=== PATIENT | male | born 1950 | race Two or more races ===

== ENCOUNTER 2017-09-21 09:13 | Emergency (ER) | payer MEDICARE, OTHER ==
[~2017-09-21] VITALS: Ht 170.2 cm; Wt 82.6 kg
[2017-09-21 09:29] VITALS: BP 136/82
[2017-09-21] MEDS ORDERED: KETOROLAC TROMETH 60MG/2ML VIAL IM ONE (10:00)
== END 2017-09-21 10:25 | disposition home or self-care (01) ==
LOC: ER 09:13
DX: S83.8X1A Sprain of other specified parts of right knee, initial encounter (principal); E11.9 Type 2 diabetes mellitus without complications; I10 Essential (primary) hypertension; X50.0XXA Overexertion from strenuous movement or load, initial encounter; Y93.89 Activity, other specified; Y99.8 Other external cause status; Y92.89 Other specified places as the place of occurrence of the external cause
CPT/HCPCS: 73562; 96372; 99284; J1885

== ENCOUNTER 2023-11-30 02:30 | Inpatient (IN) | payer MEDICARE, OTHER ==
[~2023-11-30] VITALS: Ht 170.2 cm; Wt 86.7 kg
[2023-11-30 03:59] LABS: Urine Bacteria None Seen /hpf (None Seen)
[2023-11-30 04:06] LABS: Urine Blood 3+ /uL (Negative); Urine Clarity Turbid (Clear); Urine Color Colorless (Yellow); Urine Protein, UAD 1+ (Negative); Urine Specific Gravity 1.027 (1.001-1.035); Urine Urobilinogen Normal (Negative); Urine WBC 188 /hpf (0 - 3); Urine pH 5.5 (5.0-9.0)
[2023-11-30 07:31] LABS: Basophils # (auto) 0 10 ^3/uL (0-0.2); Basophils % (auto) 0.7 % (0.0-2.0); Eosinophils # (auto) 0.3 10 ^3/uL (0-0.8); Eosinophils % (auto) 5.4 % (0.0-7.0); Hematocrit 40.7 % (41.0-53.0); Hemoglobin 13.7 g/dL (13.5-17.5); Lymphocytes # (auto) 1.6 10 ^3/uL (0.4-5.4); Lymphocytes % (auto) 24.5 % (10.0-50.0); Mean Corpuscular Hemoglobin 29.8 pg (28.0-32.0); Mean Corpuscular Hgb Conc. 33.7 g/dL (32.0-36.0); Mean Corpuscular Volume 88.5 fL (80.0-100.0); Monocytes # (auto) 0.9 10 ^3/uL (0-1.3); Monocytes % (auto) 14.9 % (0.0-12.0); Neutrophils # (auto) 3.5 10 ^3/uL (1.6-8.6); Neutrophils % (auto) 54.5 % (37.0-80.0); White Blood Cell 6.3 10^3/uL (4.4-10.8)
[2023-11-30 07:46] LABS: INR 0.98 (0.9-1.15); Partial Thromboplastin Time 27.4 SEC (24.5-34.5); Prothrombin Time 10.4 sec (9.3-11.8)
[2023-11-30 07:50] LABS: Alanine Aminotransferase 34 U/L (7-40); Albumin 4.2 g/dL (3.2-4.8); Alkaline Phosphatase 118 U/L (46-116); Anion Gap 5 (5-15); Aspartate Aminotransferase 16 U/L (13-40); BUN/Creatinine Ratio 20.8 (10.0-20.0); Blood Urea Nitrogen 20 mg/dL (9-23); Calcium 9.1 mg/dL (8.7-10.4); Carbon Dioxide 24 mmol/L (20-30); Chloride 108 mmol/L (98-107); Glucose 183 mg/dL (74-106); Lipase 73 U/L (12-53); Magnesium 2.1 mg/dL (1.6-2.6); Potassium 3.9 mmol/L (3.5-5.1); Sodium 137 mmol/L (136-145)
[2023-11-30 07:51] LABS: Total Protein 6.9 g/dL (5.7-8.2)
[2023-11-30 07:52] LABS: Bilirubin, Total 0.3 mg/dL (0.2-1.0)
[2023-11-30 08:30] VITALS: PULSE 53; RESP 22; O2SAT 91
[2023-11-30] MEDS: SODIUM CHLORIDE 0.9% 500 ML IVB ONE (08:30)
[2023-11-30] MEDS: SODIUM CHLORIDE 0.9% 1,000 ML IV ONE ×2 (09:24→15:29)
[2023-11-30] MEDS ORDERED: METO-159 PO (15:15)
[2023-11-30] MEDS ORDERED: CLON0.1T PO (15:15)
[2023-11-30] MEDS ORDERED: MET25T PO (15:15)
[2023-11-30] MEDS ORDERED: ATOR40TA52 PO (15:15)
[2023-11-30] MEDS ORDERED: DICL1GEL73 TOP (15:15)
[2023-11-30] MEDS ORDERED: VALS1TAB57 PO (15:15)
[2023-11-30] MEDS ORDERED: NIFE90TA75 (15:15)
[2023-11-30] MEDS ORDERED: ACETAMINOPHEN 325 MG TAB PO PRN (15:15)
[2023-11-30] MEDS ORDERED: ASPI-325 PO (15:15)
[2023-11-30] MEDS ORDERED: CONT1KIT21 (15:15)
[2023-11-30] MEDS ORDERED: DEXTROSE (50%) 50ML SYRG IV PRN (15:15)
[2023-11-30 15:38] LABS: Triglycerides 226 mg/dL (< 150)
[2023-11-30 15:39] LABS: LDL Cholesterol 68 mg/dL (< 100)
[2023-11-30 15:40] LABS: Cholesterol 131 mg/dL (< 200); HDL Cholesterol 26 mg/dL (40-59)
[2023-11-30] MEDS: SODIUM CHLORIDE 0.9% 1,000 ML IV SCH (16:30)
[2023-11-30 17:26] VITALS: BP 168/73; PULSE 55; RESP 16; TEMP 97.6; O2SAT 98
[2023-11-30] MEDS: ACCU-CHEK COMFORT CURVE STRIP VI SCH (18:29)
[2023-11-30] MEDS: InsuLIN REG 1unit/0.01ml Soln (100units/ml) SC SCH (18:30)
[2023-11-30 18:58] VITALS: TEMP 97.6
[2023-11-30 20:00] VITALS: PULSE 63; RESP 20; O2SAT 94
[2023-11-30 21:00] VITALS: BP 143/89; PULSE 63; RESP 20; TEMP 98; O2SAT 94
[2023-12-01] VITALS (8 sets, daily range): BP systolic 147–190; BP diastolic 59–87; PULSE 55–63; RESP 16–20; TEMP 97.8–98.7; O2SAT 93–98
[2023-12-01 06:54] LABS: Basophils # (auto) 0 10 ^3/uL (0-0.2); Basophils % (auto) 0.7 % (0.0-2.0); Eosinophils # (auto) 0.4 10 ^3/uL (0-0.8); Eosinophils % (auto) 6.1 % (0.0-7.0); Hematocrit 41.1 % (41.0-53.0); Hemoglobin 13.9 g/dL (13.5-17.5); Lymphocytes # (auto) 1.5 10 ^3/uL (0.4-5.4); Lymphocytes % (auto) 25.7 % (10.0-50.0); Mean Corpuscular Hemoglobin 30.2 pg (28.0-32.0); Mean Corpuscular Hgb Conc. 33.9 g/dL (32.0-36.0); Mean Corpuscular Volume 89.1 fL (80.0-100.0); Monocytes # (auto) 0.8 10 ^3/uL (0-1.3); Neutrophils # (auto) 3.1 10 ^3/uL (1.6-8.6); Neutrophils % (auto) 53.5 % (37.0-80.0); Nucleated Red Blood Cells % 0.1 %; Red Blood Cells 4.61 10^6/uL (4.5-5.90); Red Cell Distribution Width 13.8 % (11.8-14.3); White Blood Cell 5.8 10^3/uL (4.4-10.8)
[2023-12-01 07:11] LABS: Alanine Aminotransferase 34 U/L (7-40); Alkaline Phosphatase 99 U/L (46-116); Anion Gap 4 (5-15); Aspartate Aminotransferase 12 U/L (13-40); BUN/Creatinine Ratio 15.8 (10.0-20.0); Bilirubin, Total 0.5 mg/dL (0.2-1.0); Blood Urea Nitrogen 15 mg/dL (9-23); Calcium 9.2 mg/dL (8.7-10.4); Carbon Dioxide 25 mmol/L (20-30); Chloride 110 mmol/L (98-107); Glucose 209 mg/dL (74-106); Lipase 57 U/L (12-53); Potassium 4.2 mmol/L (3.5-5.1); Sodium 139 mmol/L (136-145); Total Protein 6.8 g/dL (5.7-8.2)
[2023-12-01] MEDS: cloNIDine HCL 0.1 MG TAB PO SCH (10:23)
[2023-12-01] MEDS: VALSARTAN 80 MG TAB PO SCH (10:24)
[2023-12-01] MEDS: ATORVASTATIN 20 MG TAB PO SCH (10:24)
[2023-12-01] MEDS ORDERED: cefTRIAXone 2GM/50ML D5W 50 ML IV ONE (13:45)
[2023-12-01] MEDS: cefTRIAXone 1GM/50ML D5W 50 ML IV ONE (14:42)
[2023-12-02] VITALS (9 sets, daily range): BP systolic 129–185; BP diastolic 71–94; PULSE 56–98; RESP 16–19; TEMP 97.7–98.5; O2SAT 90–98
[2023-12-02] MEDS: hydrALAZINE HCL 20 MG/ML VL IV PRN (05:13)
[2023-12-02] MEDS: cefTRIAXone 1GM/50ML D5W 50 ML IV SCH (09:00)
[2023-12-02] MEDS ORDERED: CIPR-173 PO (12:24)
== END 2023-12-02 17:15 | disposition home or self-care (01) | DRG 690 ==
LOC: ER 02:30 → OVERFLOW 15:14 → WEST WING 17:42
PROVIDERS: ADMIT Nurse Practitioner Family; ATTEND Family Medicine
DX: N39.0 Urinary tract infection, site not specified (principal); K86.1 Other chronic pancreatitis; R31.0 Gross hematuria; I10 Essential (primary) hypertension; E11.65 Type 2 diabetes mellitus with hyperglycemia; K80.20 Calculus of gallbladder without cholecystitis without obstruction; Z85.46 Personal history of malignant neoplasm of prostate; Z92.3 Personal history of irradiation; Z92.21 Personal history of antineoplastic chemotherapy; Z79.899 Other long term (current) drug therapy; Z79.82 Long term (current) use of aspirin; Z87.442 Personal history of urinary calculi; Z86.711 Personal history of pulmonary embolism
CPT/HCPCS: 36415; 71046; 74176; 76775; 80053; 80061; 81001; 82962; 83036; 83690; 83735; 84443; 85025; 85610; 85730; 87040; 87086; 93005; 96360; G0378; J1815

== ENCOUNTER 2024-05-13 17:30 | Emergency (ER) | payer MEDICARE, OTHER ==
[~2024-05-13] VITALS: Ht 170.2 cm; Wt 82.0 kg
[~2024-05-13 17:30] MED LIST: ASPI-325 PO; ATOR40TA52 PO; CIPR-173 PO; CLON0.1T PO; CONT1KIT21; DICL1GEL73 TOP; MET25T PO; METO-159 PO; NIFE90TA75; VALS1TAB57 PO
--- NOTE | 2024-05-13 19:12 | ED.PDOC ---
History of Present Illness HPI Comments 74 M s/p fall from 3 foot ladder onto left side He states he did hit his head on a soft pillow, He has pain, decreased ROM of motion, left upper arm. He has pain in the left hip. He has been able to ambulate. Denies loss of consciousness. Denies numbness, tingling, weakness. Chief Complaint: Fall Injury Time Seen by MD: 18:02 Primary Care Provider: JORGE A Allergies: Coded Allergies: NO KNOWN ALLERGIES (Unverified , 09/21/17) Home Meds Active Scripts Ibuprofen (Ibuprofen) 600 Mg Tab, 1 TAB PO TID PRN for 5 Days, #15 TAB Prov:JIMMY MONTOYA MD 05/13/24 Acetaminophen (Acetaminophen Er) 650 Mg Tab, 650 MG PO Q6HPRN PRN for 5 Days, #20 TAB Prov:JIMMY MONTOYA MD 05/13/24 Ciprofloxacin Hcl (Cipro) 500 Mg Tab, 1 TAB PO BID, #14 TAB Prov:MONIQUE BARNETT MD 12/02/23 Reported Medications Nifedipine (Nifedipine Er) 90 Mg Tab, 1 11/30/23 Atorvastatin Calcium (ATORVASTATIN CALCIUM) 40 Mg Tab, 1 TAB PO DAILY 11/30/23 Metoprolol Tartrate (Metoprolol Tartrate) 100 Mg Tab, 1 TAB PO BID 11/30/23 Clonidine Hydrochloride (Clonidine Hcl) 0.1 Mg Tab, 1 TAB PO DAILY 11/30/23 Metoprolol Tartrate (Lopressor) 25 Mg Tb, 1 TAB PO DAILY 11/30/23 Valsartan (Valsartan) 80 Mg Tab, 1 TAB PO DAILY 11/30/23 Aspirin (Aspirin Low Dose) 81 Mg Tab, 1 TAB PO DAILY 11/30/23 Continuous Blood Glucose Syste (Freestyle Aysha 2/Sensor/) 1 Kit Kit 11/30/23 Diclofenac Sodium (Topical) (Diclofenac Sodium) 1 % Gel, 2 TOP BID 11/30/23 Mode of Arrival: EMS Vital Signs Vital Signs Date Time Temp Pulse Resp B/P (MAP) Pulse Ox O2 Delivery O2 Flow Rate FiO2 05/13/24 23:30 98.1 05/13/24 23:25 85 16 138/82 (100) 93 05/13/24 23:25 Room Air* 0 21 Physical Exam GEN: Patient alert, in no acute distress HEENT: Atraumatic, normocephalic without edema, discoloration or evidence of trauma. Facial bones without deformities or tenderness EYES: PERRL. no scleral icterus or conjunctival injection. Extraocular muscles intact without nystagmus or diplopia. No proptosis or enophthalmos. EARS: Normal-appearing pinnae. No hemotympanum. NOSE: Trachea midline. No discolorations or edema. Neck immobilized in cervical collar. CVS: S1-S2 heard, regular rate and rhythm, no murmur RESPIRATORY: No respiratory distress. Breath sounds clear bilateral, no wheezes, rhonchi or rales; no use of accessory muscles CHEST: No abrasions or ecchymosis. Chest symmetric with respirations. No chest wall tenderness. No crepitus. No step-offs. Lungs are clear to auscultation bilaterally. No rales, rhonchi, wheezing or stridor. ABDOMINAL: No ecchymosis or abrasions. Soft, nondistended, nontender. Bowel tones normoactive. No masses or organomegaly. : No CVA tenderness Extremities: Upper and lower extremities are atraumatic in appearance without deformity or edema. Normal range of motion of wrist, elbow. No obvious deformity, bruising, ecchymosis. Radial pulse intact. Sensation and strength intact in the hand. Painful range of motion of the left shoulder. Patient is unable to move the arm from the abducted position due to pain. Tenderness to palpation of the lateral proximal humerus. No spinous process tenderness of the C-spine, thoracic spine, lumbar spine. BACK: No abrasions, skin openings or ecchymosis. Spine without bony tenderness. No step-offs. PELVIC: Pelvis stable, nontender to lateral compression and palpation of the symphysis pubis. NEURO: Alert and oriented to person, place and time. GCS 15. Cranial nerves II through XII intact. Sensation grossly intact. Strength 5 out of 5 in bilateral upper and lower extremities. Gait within normal limits. CEREBELLAR FUNCTION: Vdtxax-ak-bcmq intact bilaterally SKIN: Warm and well perfused. No lacerations, bruises, discoloration or abrasions. PSYCH: Normal affect, normal mood, no apparent hallucinations, speech clear LYMPHATIC: No cervical lymphadenopathy Review of Systems: REVIEW OF SYSTEMS: No fever, no chills, or fatigue HEENT: No sore throat, no earache, no congestion, no neck pain. Cardiac: No chest pain. No palpitations. Lungs: No shortness of breath, no cough. GI: No nausea, no vomiting, no diarrhea, no constipation, no abdominal pain : No dysuria, frequency, or urgency. No hematuria. Musculoskeletal: Left upper arm pain, left hip pain Skin: No rash, no itching. Neuro: No headache, no dizziness, no weakness Past Medical History PAST MEDICAL HISTORY: Cancer, DM, HTN Family History Family History: Unknown Social History Smoker: Non-Smoker Alcohol: Denies ETOH Use Drugs: Denies Drug Use Lives In: Home Was a procedure done? Was a procedure done?: No Differential Dx Considerations may include: Differential diagnoses considered include but are not limited to intracranial hemorrhage, closed head injury, skull fracture, TBI, long bone fracture, rib fracture, pneumothorax, spinal fracture, spinal injury, cardiac contusion, organ laceration, pelvic fracture, laceration, soft tissue injury, vascular injury, other X-Ray, Labs, Meds, VS Vital Signs Date Time Temp Pulse Resp B/P (MAP) Pulse Ox O2 Delivery O2 Flow Rate FiO2 05/13/24 23:30 98.1 05/13/24 23:25 98.1 85 16 138/82 (100) 93 98.1 05/13/24 23:25 93 16 93 Room Air* 0 21 05/13/24 17:40 97.4 64 24 122/61 (81) 97 [place] [address] Ph: [phone] DIAGNOSTIC IMAGING Diagnostic Imaging Report : [id number] Signed PATIENT: TEN BAKER ACCT: [id number] UNIT: [id number] : 1950 LOC: ER ROOM / BED: / AGE / SEX: 74 / M ADM STATUS: REG ER SERVICE 55 ORDERING PHYSICIAN: JIMMY MONTOYA MD PROCEDURE(s): LHUCT - CT LEFT HUMERUS WO CONTRAST REASON: r/o fx ORDER NUMBER(s): [id number], ACCESSION NUMBER(s): [id number] CT CT LEFT HUMERUS WO CONTRAST INDICATION: r/o fx EXAM DATE: 05/13/2024 08:15 PM COMPARISON: None RADIATION DOSE: CTDIvol: 28 mGy, DLP: 1162 mGy*cm Technique: Helical CT images were obtained of the left humerus. No IV contrast was administered. Sagittal and coronal reconstructions are provided. ADDITIONAL IMAGES: None FINDINGS: BONES: No fracture.Normal anatomic alignment.] JOINT SPACES: Maintained. No joint effusion. SOFT TISSUES: within normal limits. VESSELS: unremarkable. IMPRESSION: No acute left shoulder abnormality. Questionable deformity along the posterior humeral head which may be from a Hill-Sachs injury. ATED BY: DANTE ARAGON DO DICTATED DATE/TIME: 05/13/242048 SIGNED BY: DANTE ARAGON DO SIGNED DATE/TIME: 05/13/242048 CC: [place] [address] Ph: [phone] DIAGNOSTIC IMAGING Diagnostic Imaging Report : [id number] Signed PATIENT: TEN BAKER ACCT: [id number] UNIT: [id number] : 1950 LOC: ER ROOM / BED: / AGE / SEX: 74 / M ADM STATUS: REG ER SERVICE 55 ORDERING PHYSICIAN: JIMMY MONTOYA MD PROCEDURE(s): LS2CT - LS SPINE WO CONTRAST REASON: fall ORDER NUMBER(s): [id number], ACCESSION NUMBER(s): [id number] CT LS SPINE WO CONTRAST Date: 05/13/2024 08:18 PM History: fall Comparison: CT CT LEFT HUMERUS WO CONTRAST on DOS: 05/13/24, CT HEAD WITHOUT CONTRAST on DOS: 05/13/24 TECHNIQUE: Multiple axial CT images of the lumbosacral spine were obtained using bone algorithm. Axial and coronal reformatting was done. Bone and soft tissue windows were reviewed. Radiation Dose Information: CT Dose: CTDI volume is 28.12 mGy. Dose-length product is 1029 mGy*cm FINDINGS: No CT evidence of definite acute fracture, spinal dislocation, or significant appearing acute subluxation is seen. The visualized paraspinal soft tissues are grossly unremarkable. T12-L1 There is no evidence of central spinal canal or neuroforaminal stenosis. L1-L2 There is no evidence of central spinal canal or neuroforaminal stenosis. L2-L3 There is no evidence of central spinal canal or neuroforaminal stenosis. L3-L4 There is no evidence of central spinal canal or neuroforaminal stenosis. L4-L5 degenerative disc changes at L4-5. There is diffuse annular bulge of the disc with disc material involving the left neural foramen and right neural foramen. L5-S1 there is degenerative disc changes at L5-S1. Mild diffuse annular bulge of the disc. IMPRESSION: 1. Diffuse annular bulge of the disc at L4-5 with degenerative disc changes and disc material noted compressing the thecal sac and involving the right and left neural foramen. 2. Diffuse annular bulge of the disc at L 5 S1 with no spinal stenosis or neural foraminal involvement. 3. All CT scans at this medical facility are performed using dose modulation techniques as appropriate to a performed exam including the following: Automated exposure control was utilized; adjustment of the MA and/or KV according to patient size; and use of iterative reconstruction technique. ATED BY: TEN DODGE Jr., DO DICTATED DATE/TIME: 05/13/242110 SIGNED BY: TEN DODGE Jr., SIGNED DATE/TIME: 05/13/242110 CC: [place] [address] Ph: [phone] DIAGNOSTIC IMAGING Diagnostic Imaging Report : [id number] Signed PATIENT: TEN BAKER ACCT: [id number] UNIT: [id number] : 1950 LOC: ER ROOM / BED: / AGE / SEX: 74 / M ADM STATUS: REG ER SERVICE 26 ORDERING PHYSICIAN: JIMMY MONTOYA MD PROCEDURE(s): LSHD2 - L SHOULDER 2+ VIEW XRAY REASON: fall ORDER NUMBER(s): [id number], ACCESSION NUMBER(s): [id number] L SHOULDER 2+ VIEW XRAY INDICATION: fall TECHNICAL DATA: Multiple views of the left shoulder and left hip. COMPARISON: None Findings/ IMPRESSION: No acute fracture or dislocation. No significant degenerative changes. No radiopaque foreign objects. ATED BY: DANTE ARAGON DO DICTATED DATE/TIME: 05/13/241928 SIGNED BY: DANTE ARAGON DO SIGNED DATE/TIME: 05/13/241928 CC: [place] [address] Ph: [phone] DIAGNOSTIC IMAGING Diagnostic Imaging Report : [id number] Signed PATIENT: TEN BAKER ACCT: [id number] UNIT: [id number] : 1950 LOC: ER ROOM / BED: / AGE / SEX: 74 / M ADM STATUS: REG ER SERVICE 26 ORDERING PHYSICIAN: JIMMY MONTOYA MD PROCEDURE(s): LHIP - L HIP COMPLETE XRAY REASON: fall ORDER NUMBER(s): [id number], ACCESSION NUMBER(s): [id number] L SHOULDER 2+ VIEW XRAY INDICATION: fall TECHNICAL DATA: Multiple views of the left shoulder and left hip. COMPARISON: None Findings/ IMPRESSION: No acute fracture or dislocation. No significant degenerative changes. No radiopaque foreign objects. ATED BY: DANTE ARAGON DO DICTATED DATE/TIME: 05/13/241928 SIGNED BY: DANTE ARAGON DO SIGNED DATE/TIME: 05/13/241928 CC: [place] [address] Ph: [phone] DIAGNOSTIC IMAGING Diagnostic Imaging Report : [id number] Signed PATIENT: TEN BAKER ACCT: [id number] UNIT: [id number] : 1950 LOC: ER ROOM / BED: / AGE / SEX: 74 / M ADM STATUS: REG ER SERVICE 26 ORDERING PHYSICIAN: JIMMY MONTOYA MD PROCEDURE(s): HWOCT - HEAD WITHOUT CONTRAST REASON: fall ORDER NUMBER(s): [id number], ACCESSION NUMBER(s): [id number] EXAM: CT HEAD WITHOUT CONTRAST INDICATION: fall TECHNIQUE: CT of the head without intravenous contrast. Radiation Dose Information: CT Dose: CTDI volume is 64.63 mGy. Dose-length product is 1164.99 mGy*cm The dose indicators for CT are the volume Computed Tomography (CT) Dose Index (CTDIvol) and the Dose Length Product (DLP), and are measured in units of mGy and mGy-cm, respectively. These indicators are not patient dose, but values generated from the CT scanner acquisition factors. The report includes radiation exposure data for exposures received during this examination. COMPARISON: None FINDINGS: There is no evidence of acute intracranial hemorrhage, extra-axial collection, mass effect, midline shift, herniation or hydrocephalus. The ventricles, sulci and cisterns are age appropriate. The ramesh-white differentiation is intact. Patchy periventricular and subcortical white matter hypoattenuation is nonspecific but may be related to small vessel ischemic disease. The visualized paranasal sinuses and mastoid air cells are clear. The surrounding soft tissues and osseous structures are unremarkable. IMPRESSION: 1. No acute intracranial hemorrhage 2. No CT findings of displaced skull fracture. 3. No territorial ischemia. ATED BY: TEN DODGE Jr., DO DICTATED DATE/TIME: 05/13/241916 SIGNED BY: TEN DODGE Jr., SIGNED DATE/TIME: 05/13/241916 CC: [place] [address] Ph: [phone] DIAGNOSTIC IMAGING Diagnostic Imaging Report : [id number] Signed PATIENT: TEN BAKER ACCT: [id number] UNIT: [id number] : 1950 LOC: ER ROOM / BED: / AGE / SEX: 74 / M ADM STATUS: REG ER SERVICE 26 ORDERING PHYSICIAN: JIMMY MONTOYA MD PROCEDURE(s): CS2 - CERVICAL WITHOUT CONTRAST REASON: fall ORDER NUMBER(s): [id number], ACCESSION NUMBER(s): [id number] EXAM: CT CERVICAL WITHOUT CONTRAST INDICATION: fall EXAM DATE: 05/13/2024 06:55 PM COMPARISON: CT HEAD WITHOUT CONTRAST on DOS: 05/13/24 TECHNIQUE: Multiple axial CT images of the cervical spine were obtained using bone algorithm. Axial and coronal reformatting was done. Bone and soft tissue windows were reviewed. Radiation Dose Information: CT Dose: CTDI volume is 22.78 mGy. Dose-length product is 575.72 mGy*cm FINDINGS: The cervical alignment is intact. No acute cervical spine fracture is identified. The vertebral body heights are intact. No suspicious osseous lesions are identified. Multilevel mild to moderate degenerative changes of the cervical spine. There is fusion of bilateral C2-C3 facets with moderate to severe C3-C4 degenerative changes. There is no prevertebral soft tissue swelling. IMPRESSION: No evidence of acute cervical spine fracture or traumatic malalignment. All CT scans at this medical facility are performed using dose modulation techniques as appropriate to a performed exam including the following: Automated exposure control was utilized; adjustment of the MA and/or KV according to patient size; and use of iterative reconstruction technique. ATED BY: CAMI BONILLA DO DICTATED DATE/TIME: 05/13/241927 SIGNED BY: CAMI BONILLA DO SIGNED DATE/TIME: 05/13/241927 CC: Time of 1ST Reevaluation: 18:32 Reevaluation 1ST: Unchanged Patient Education/Counseling: Diagnosis, Treatment Family Education/Counseling: No Family Present Departure 1 Departure Time of Disposition: 22:37 Impression: Primary Impression: Fall Additional Impression: Shoulder injury Disposition: 01 HOME / SELF CARE / HOMELESS Condition: Stable Referrals: TEN MAYES MD Additional Instructions: ED DISCHARGE INSTRUCTIONS Instructions: Please read all instructions provided in this packet carefully. Wear shoulder immobilizer until you are able to follow up with the primary care provider or orthopedics. You may need further testing such as an MRI to evaluate your shoulder pain. Although you have been discharged from the Emergency Department, this does not mean that you have a "clean bill of health". No definitive diagnosis for your symptoms has been made today. It is possible that you are in the process of developing a serious illness. This is why you must return to the ED without fail if any new or worsening symptoms (especially if your symptoms include chest pain, trouble breathing, abdominal pain, fever, headache, confusion, trouble seeing, or trouble walking) It is also very important that you see a primary care doctor within the next 3-5 days to follow up. You will need a referral to Orthopedics. If you are unable to get an appointment, return to the ED for re-evaluation. Shoulder Pain: Care Instructions Overview You can hurt your shoulder by using it too much during an activity, such as fishing or baseball. It can also happen as part of the everyday wear and tear of getting older. Shoulder injuries can be slow to heal, but your shoulder should get better with time. Your doctor may recommend a sling to rest your shoulder. If you have injured your shoulder, you may need testing and treatment. Follow-up care is a wilkins part of your treatment and safety. Be sure to make and go to all appointments, and call your doctor if you are having problems. It's also a good idea to know your test results and keep a list of the medicines you take. How can you care for yourself at home? Take pain medicines exactly as directed. If the doctor gave you a prescription medicine for pain, take it as prescribed. If you are not taking a prescription pain medicine, ask your doctor if you can take an ehyi-dhr-tlepofn medicine. Do not take two or more pain medicines at the same time unless the doctor told you to. Many pain medicines contain acetaminophen, which is Tylenol. Too much acetaminophen (Tylenol) can be harmful. If your doctor recommends that you wear a sling, use it as directed. Do not take it off before your doctor tells you to. Put ice or a cold pack on the sore area for 10 to 20 minutes at a time. Put a thin cloth between the ice and your skin. If there is no swelling, you can put moist heat, a heating pad, or a warm cloth on your shoulder. Some doctors suggest alternating between hot and cold. Rest your shoulder for a few days. If your doctor recommends it, you can then begin gentle exercise of the shoulder, but do not lift anything heavy. When should you call for help? Call 911 anytime you think you may need emergency care. For example, call if: You have chest pain or pressure. This may occur with: Sweating. Shortness of breath. Nausea or vomiting. Pain that spreads from the chest to the neck, jaw, or one or both shoulders or arms. Dizziness or lightheadedness. A fast or uneven pulse. After calling 911, chew 1 adult-strength aspirin. Wait for an ambulance. Do not try to drive yourself. Your arm or hand is cool or pale or changes color. Call your doctor now or seek immediate medical care if: You have signs of infection, such as: Increased pain, swelling, warmth, or redness in your shoulder. Red streaks leading from a place on your shoulder. Pus draining from an area of your shoulder. Swollen lymph nodes in your neck, armpits, or groin. A fever. Watch closely for changes in your health, and be sure to contact your doctor if: You cannot use your shoulder. Your shoulder does not get better as expected. Credits for Shoulder Pain: Care Instructions Current as of: January 01, 2024 Author: [employer] Staff Clinical Review Board All [employer] education is reviewed by a team that includes physicians, nurses, advanced practitioners, registered dieticians, and other healthcare professionals. e-Prescriptions Ibuprofen (Ibuprofen) 600 Mg Tab 1 TAB PO TID PRN for 5 Days, #15 TAB Prov: JIMMY MONTOYA MD 05/13/24 Acetaminophen (Acetaminophen Er) 650 Mg Tab 650 MG PO Q6HPRN PRN for 5 Days, #20 TAB Prov: JIMMY MONTOYA MD 05/13/24 Comments Do not suspect intracranial hemorrhage, closed head injury, skull fracture, ( CT head negative) , long bone fracture, rib fracture, pneumothorax, cardiac contusion, (patient denied chest pain, shortness of breath, normal lung exam) spinal fracture, spinal injury, (no lumbar or thoracic spinal tenderness, patient denies pain in this area) organ laceration, (no abdominal wall bruising, patient denying any significant abdominal pain) pelvic fracture, exam negative for laceration soft tissue injury or vascular injury. CT scan shows possible Hill-Sachs deformity. Patient placed in shoulder immobilizer, advised prompt follow up with PCP / orthopedics for further evaluation. Extensive evaluation was performed in attempt to identify or rule out: (See differential diagnosis section) The following tests were ordered, and results were reviewed by me: (See diagnostic results section) The following test were independently interpreted by me: N/A I reviewed and agreed with the following test results read by other providers: N/A I reviewed the following notes from the pt's past medical encounters: (None available at this time) Additional information was gathered from interviewing the following independent historians: N/A Discussion of management or test interpretation with external physician/other qualified health ambulatory care nurse: N/A Addressed an acute or chronic illness that poses a threat to life or bodily function: Acute trauma Decision regarding hospitalization or escalation of hospital level of care: Risks and benefits of admission for further treatment of patient's condition was considered however due to patient's stable condition patient will be discharged to follow up closely or return to care for worsening of condition or inability to follow up. Critical Care Note Critical Care Time?: No Stability Stability form required: No Heart Score Heart Score: Heart Score Response (Comments) Value History N/A 0 EKG N/A 0 Age N/A 0 Risk Factors N/A 0 Troponin N/A 0 Total 0 I personally scribed for JIMMY MONTOYA MD ([email or web address]) on 05/13/24 at 21:31. Electronically submitted by Norris Edwards ([email or web address]). JIMMY MONTOYA MD May 13, 2024 19:12
--- NOTE | 2024-05-13 19:20 | DVH ---
EXAM: CT HEAD WITHOUT CONTRAST INDICATION: fall TECHNIQUE: CT of the head without intravenous contrast. Radiation Dose Information: CT Dose: CTDI volume is 64.63 mGy. Dose-length product is 1164.99 mGy*cm The dose indicators for CT are the volume Computed Tomography (CT) Dose Index (CTDIvol) and the Dose Length Product (DLP), and are measured in units of mGy and mGy-cm, respectively. These indicators are not patient dose, but values generated from the CT scanner acquisition factors. The report includes radiation exposure data for exposures received during this examination. COMPARISON: None FINDINGS: There is no evidence of acute intracranial hemorrhage, extra-axial collection, mass effect, midline s hift, herniation or hydrocephalus. The ventricles, sulci and cisterns are age appropriate. The ramesh-white differentiation is intact. Patchy periventricular and subcortical white matter hypoattenuation is nonspecific but may be related to small vessel ischemic disease. The visualized paranasal sinuses and mastoid air cells are clear. The surrounding soft tissues and osseous structures are unremarkable. IMPRESSION: 1. No acute intracranial hemorrhage 2. No CT findings of displaced skull fracture. 3. No territorial ischemia.
--- NOTE | 2024-05-13 19:31 | DVH ---
EXAM: CT CERVICAL WITHOUT CONTRAST INDICATION: fall EXAM DATE: 05/13/2024 06:55 PM COMPARISON: CT HEAD WITHOUT CONTRAST on DOS: 05/13/24 TECHNIQUE: Multiple axial CT images of the cervical spine were obtained using bone algorithm. Axial a nd coronal reformatting was done. Bone and soft tissue windows were reviewed. Radiation Dose Information: CT Dose: CTDI volume is 22.78 mGy. Dose-length product is 575.72 mGy*cm FINDINGS: The cervical alignment is intact. No acute cervical spine fracture is identified. The vertebral body heights are intact. No suspicious osseous lesions are identified. Multilevel mild to moderate degenerative changes of the cervical spine. There is fusion of bilateral C2-C3 facets with moderate to severe C3-C4 degenerative changes. There is no prevertebral soft tissue swelling. IMPRESSION: No evidence of acute cervical spine fracture or traumatic malalignment. All CT scans at this medical facility are performed using dose modulation techniques as appropriate t o a performed exam including the following: Automated exposure control was utilized; adjustment of th e MA and/or KV according to patient size; and use of iterative reconstruction technique.
--- NOTE | 2024-05-13 19:31 | DVH ---
XY L SHOULDER 2+ VIEW XRAY INDICATION: fall TECHNICAL DATA: Multiple views of the left shoulder and left hip. COMPARISON: None Findings/ IMPRESSION: No acute fracture or dislocation. No significant degenerative changes. No radiopaque foreign objects.
--- NOTE | 2024-05-13 20:52 | DVH ---
CT CT LEFT HUMERUS WO CONTRAST INDICATION: r/o fx EXAM DATE: 05/13/2024 08:15 PM COMPARISON: None RADIATION DOSE: CTDIvol: 28 mGy, DLP: 1162 mGy*cm Technique: Helical CT images were obtained of the left humerus. No IV contrast was administered. Sag ittal and coronal reconstructions are provided. ADDITIONAL IMAGES: None FINDINGS: BONES: No fracture.Normal anatomic alignment.] JOINT SPACES: Maintained. No joint effusion. SOFT TISSUES: within normal limits. VESSELS: unremarkable. IMPRESSION: No acute left shoulder abnormality. Questionable deformity along the posterior humeral head which may be from a Hill-Sachs injury.
--- NOTE | 2024-05-13 21:13 | DVH ---
CT LS SPINE WO CONTRAST Date: 05/13/2024 08:18 PM History: fall Comparison: CT CT LEFT HUMERUS WO CONTRAST on DOS: 05/13/24, CT HEAD WITHOUT CONTRAST on DOS: TECHNIQUE: Multiple axial CT images of the lumbosacral spine were obtained using bone algorithm. Axial and coron al reformatting was done. Bone and soft tissue windows were reviewed. Radiation Dose Information: CT Dose: CTDI volume is 28.12 mGy. Dose-length product is 1029 mGy*cm FINDINGS: No CT evidence of definite acute fracture, spinal dislocation, or significant appearing acute subluxa tion is seen. The visualized paraspinal soft tissues are grossly unremarkable. T12-L1 There is no evidence of central spinal canal or neuroforaminal stenosis. L1-L2 There is no evidence of central spinal canal or neuroforaminal stenosis. L2-L3 There is no evidence of central spinal canal or neuroforaminal stenosis. L3-L4 There is no evidence of central spinal canal or neuroforaminal stenosis. L4-L5 degenerative disc changes at L4-5. There is diffuse annular bulge of the disc with disc materia l involving the left neural foramen and right neural foramen. L5-S1 there is degenerative disc changes at L5-S1. Mild diffuse annular bulge of the disc. IMPRESSION: 1. Diffuse annular bulge of the disc at L4-5 with degenerative disc changes and disc material noted c ompressing the thecal sac and involving the right and left neural foramen. 2. Diffuse annular bulge of the disc at L 5 S1 with no spinal stenosis or neural foraminal involvemen t. 3. All CT scans at this medical facility are performed using dose modulation techniques as appropriate to a performed exam including the following: Automated exposure control was utilized; adjustment of t he MA and/or KV according to patient size; and use of iterative reconstruction technique.
[2024-05-13] MEDS: traMADol HCL 50 MG TAB PO ONE (22:02)
[2024-05-13] MEDS: ACETAMINOPHEN 325 MG TAB PO ONE (22:02)
[2024-05-13] MEDS: ONDANSETRON ODT 4 MG TAB PO ONE (22:03)
[2024-05-13] MEDS ORDERED: ACET650T12 PO (22:37)
[2024-05-13] MEDS ORDERED: IBUP-1454 PO (22:37)
[2024-05-13 23:25] VITALS: BP 138/82; PULSE 93; RESP 16; O2SAT 93
[2024-05-13 23:30] VITALS: TEMP 98.1
== END 2024-05-13 23:46 | disposition home or self-care (01) ==
LOC: ER 17:30 → EDBD 17:30 → ER 23:30
DX: S49.82XA Other specified injuries of left shoulder and upper arm, initial encounter (principal); Z79.899 Other long term (current) drug therapy; Z79.84 Long term (current) use of oral hypoglycemic drugs; W22.8XXA Striking against or struck by other objects, initial encounter; Y93.89 Activity, other specified; Y92.89 Other specified places as the place of occurrence of the external cause; Y99.8 Other external cause status
CPT/HCPCS: 70450; 72125; 72131; 73030; 73200; 73502; 99284; Q0162

== ENCOUNTER 2025-01-01 06:45 | Inpatient (IN) | payer OTHER, MEDICARE ==
[~2025-01-01] VITALS: Ht 170.2 cm; Wt 86.3 kg
[~2025-01-01 06:45] MED LIST changes: +ACET650T12 PO; +IBUP-1454 PO
--- NOTE | 2025-01-01 06:56 | ED.PDOC ---
History of Present Illness HPI Comments This is a 74 year old male BIBA presenting to the ED with chief complaint of shoulder pain/HTN. EMS reports that the patient has been experiencing right sided shoulder and neck pain with associated radiation into the right side of his head, SOB, and neck stiffness since yesterday. Patient relays that he has been compliant with his HTN and DM medication. EMS states patient's initial BP was noted to be 225/122, now down to 190/102. Patient denies any chest pain, dizziness, N/V, abdominal pain, fever, or chills. Chief Complaint: Upper Extremity Time Seen by MD: 06:54 Primary Care Provider: JORGE A Tapia Notes: Nurses Notes, Wedding Florist Notes, Medications, Allergies Allergies: Coded Allergies: NO KNOWN ALLERGIES (Unverified , 09/21/17) Home Meds Active Scripts Ibuprofen (Ibuprofen) 600 Mg Tab, 1 TAB PO TID PRN for 5 Days, #15 TAB Prov:JIMMY MONTOYA MD 05/13/24 Acetaminophen (Acetaminophen Er) 650 Mg Tab, 650 MG PO Q6HPRN PRN for 5 Days, #20 TAB Prov:JIMMY MONTOYA MD 05/13/24 Ciprofloxacin Hcl (Cipro) 500 Mg Tab, 1 TAB PO BID, #14 TAB Prov:MONIQUE BARNETT MD 12/02/23 Reported Medications Nifedipine (Nifedipine Er) 90 Mg Tab, 1 11/30/23 Atorvastatin Calcium (ATORVASTATIN CALCIUM) 40 Mg Tab, 1 TAB PO DAILY 11/30/23 Metoprolol Tartrate (Metoprolol Tartrate) 100 Mg Tab, 1 TAB PO BID 11/30/23 Clonidine Hydrochloride (Clonidine Hcl) 0.1 Mg Tab, 1 TAB PO DAILY 11/30/23 Metoprolol Tartrate (Lopressor) 25 Mg Tb, 1 TAB PO DAILY 11/30/23 Valsartan (Valsartan) 80 Mg Tab, 1 TAB PO DAILY 11/30/23 Aspirin (Aspirin Low Dose) 81 Mg Tab, 1 TAB PO DAILY 11/30/23 Continuous Blood Glucose Syste (Freestyle Aysha 2/Sensor/) 1 Kit Kit 11/30/23 Diclofenac Sodium (Topical) (Diclofenac Sodium) 1 % Gel, 2 TOP BID 11/30/23 Information Source: Patient, Emergency Med Personnel Mode of Arrival: EMS Severity: Moderate Timing: Days Duration: Since onset Prehospital treatment: None Medication Refill: For: Pain, For: Hypertension Past Medical History PAST MEDICAL HISTORY: Cancer, DM, HTN Surgical History: Denies all surgeries Family History Family History: Reviewed,noncontributory to illness, Unknown Social History Smoker: Non-Smoker Alcohol: Denies ETOH Use Drugs: Denies Drug Use Lives In: Home Constitutional: denies: chills, diaphoresis, fatigue, fever, malaise, sweats, weakness, others EENTM: denies: blurred vision, double vision, ear bleeding, ear discharge, ear drainage, ear pain, ear ringing, eye pain, eye redness, hearing loss, mouth pain, mouth swelling, nasal discharge, nose bleeding, nose congestion, nose pain, photophobia, tearing, throat pain, throat swelling, voice changes, others Respiratory: reports: shortness of breath; denies: cough, hemoptysis, orthopnea, SOB at rest, SOB with excertion, stridor, wheezing, others Cardiovascular: denies: chest pain, dizzy spells, diaphoresis, Dyspnea on exertion, edema, irregular heart beat, left arm pain, lightheadedness, palpitations, PND, syncope, others Gastrointestinal: denies: abdomen distended, abdominal pain, blood streaked bowels, constipated, diarrhea, dysphagia, difficulty swallowing, hematemesis, melena, nausea, poor appetite, poor fluid intake, rectal bleeding, rectal pain, vomiting, others Genitourinary: denies: burning, dysuria, flank pain, frequency, hematuria, incontinence, penile discharge, penile sore, pain, testicle pain, testicle swelling, urgency, others Neurological: reports: headache; denies: dizziness, fainting, left sided numbness, left sided weakness, numbness, paresthesia, pre-existing deficit, right sided numbness, right sided weakness, seizure, speech problems, tingling, tremors, weakness, others Musculoskeletal: reports: neck pain, others (Rt shoulder pain); denies: back pain, gout, joint pain, joint swelling, muscle pain, muscle stiffness Integumetry: denies: bruises, change in color, change in hair/nails, dryness, laceration, lesions, lumps, rash, wounds, others Allergic/Immunocompromised: denies: Difficulty Healing, Frequent Infections, Hives, Itching, others Hematologic/Lymphatic: denies: anemia, blood clots, easy bleeding, easy bruising, swollen glands, others Endocrine: denies: excessive hunger, excessive sweating, excessive thirst, excessive urination, flushing, intolerance to cold, intolerance to heat, unexplained weight gain, unexplained weight loss, others Psychiatric: denies: anxiety, bipolar disorder, depression, hopeless, panic disorder, schizophrenia, sleepless, suicidal, others All Other Systems: Reviewed and Negative Physical Exam General Appearance: Moderate Distress, Normal HEENT: Normal ENT Inspection, Pharynx Normal, TMs Normal Neck: Full Range of Motion, Non-Tender, Normal, Normal Inspection Respiratory: Chest Non-Tender, Lungs Clear, No Accessory Muscle Use, No Respiratory Distress, Normal Breath Sounds Cardiovascular: No Edema, No JVD, No Murmur, No Gallop, Normal Peripheral Pulses, Regular Rate/Rhythm Breast Exam: Deferred Gastrointestinal: No Organomegaly, Non Tender, No Pulsatile Mass, Normal Bowel Sounds, Soft Genitalia: Deferred Pelvic: Deferred Rectal: Deferred Extremities: No calf tenderness, Normal capillary refill, Normal inspection, Normal range of motion, Non-tender, No pedal edema Musculoskeletal : Apperance: Normal Neurologic: Alert, obstetrics scrub nurse II-XII nml as Tested, No Motor Deficits, Normal Affect, Normal Mood, No Sensory Deficits Cerebellar Function: NOT DONE Reflexes: NOT DONE Skin: Dry, Normal Color, Warm Peripheral Pulses: 3+ Radial (R), 3+ Radial (L) Lymphatic: No Adenopathy Was a procedure done? Was a procedure done?: No EKG EKG : Pulse Rate (adult): 58 [place]: Normal Cardiac Rhythm: NSR Block: None Hypertrophy: None ST: Normal Differential Dx Considerations may include: Hypertension Electrolyte imbalance X-Ray, Labs, Meds, VS Vital Signs Date Time Temp Pulse Resp B/P (MAP) Pulse Ox O2 Delivery O2 Flow Rate FiO2 01/01/25 08:26 58 01/01/25 08:05 97.0 61 11 161/90 (113) 92 97.0 01/01/25 07:37 61 20 95 Room Air* 0 21 01/01/25 07:28 195/103 01/01/25 07:25 56 26 195/103 (133) 95 01/01/25 07:13 58 01/01/25 06:51 58 01/01/25 06:51 98.5 56 20 190/102 98 98.5 Lab Test 01/01/25 08:50 01/01/25 08:08 01/01/25 07:12 Range/Units Troponin I High Sensitivity Pending 8 </=54 ng/L Urine Color Light-yellow Yellow Urine Clarity Clear Clear Urine pH 5.5 5.0-9.0 Urine Specific [place] 1.020 1.001-1.035 Urine Protein 1+ H Negative Urine Ketones Negative Negative Urine Blood Negative Negative /uL Urine Nitrite Negative Negative Urine Bilirubin Negative Negative Urine Urobilinogen Normal Negative mg/dL Urine Leukocyte Esterase Negative Negative /uL Urine RBC 1 0 - 3 /hpf Urine Microscopic WBC 1 0-3 /HPF Urine Squamous Epithelial Cells Few <5 /hpf Urine Bacteria Few H None Seen /hpf Urine Glucose 4+ H Normal mg/dL White Blood Count 10.0 4.4-10.8 10^3/uL Red Blood Count 4.81 4.5-5.90 10^6/uL Hemoglobin 15.0 13.5-17.5 g/dL Hematocrit 43.2 41.0-53.0 % Mean Corpuscular Volume 89.7 80.0-100.0 fL Mean Corpuscular Hemoglobin 31.2 28.0-32.0 pg Mean Corpuscular Hemoglobin Concent 34.8 32.0-36.0 g/dL Red Cell Distribution Width 14.5 H 11.8-14.3 % Platelet Count 302 140-450 10^3/uL Mean Platelet Volume 7.1 6.9-10.8 fL Neutrophils (%) (Auto) 72.4 37.0-80.0 % Lymphocytes (%) (Auto) 13.8 10.0-50.0 % Monocytes (%) (Auto) 11.4 0.0-12.0 % Eosinophils (%) (Auto) 1.9 0.0-7.0 % Basophils (%) (Auto) 0.5 0.0-2.0 % Neutrophils # (Auto) 7.2 1.6-8.6 10 ^3/uL Lymphocytes # (Auto) 1.4 0.4-5.4 10 ^3/uL Monocytes # (Auto) 1.1 0-1.3 10 ^3/uL Eosinophils # (Auto) 0.2 0-0.8 10 ^3/uL Basophils # (Auto) 0.1 0-0.2 10 ^3/uL Nucleated Red Blood Cells 0.0 % Sodium Level 139 136-145 mmol/L Potassium Level 3.9 3.5-5.1 mmol/L Chloride Level 106 98-107 mmol/L Carbon Dioxide Level 23 20-31 mmol/L Anion Gap 10 5-15 Blood Urea Nitrogen 18 9-23 mg/dL Creatinine 1.09 0.700-1.30 mg/dL Glomerular Filtration Rate Calc 71 >90 mL/min BUN/Creatinine Ratio 16.5 10.0-20.0 Serum Glucose 149 H 74-106 mg/dL Calcium Level 10.0 8.7-10.4 mg/dL Current Medications Medications (Trade) Dose Ordered Sig/Lacy Route Start Time Stop Time Status Last Admin Hydralazine HCl (Apresoline Injection) 10 mg ONCE ONCE IV 01/01/25 07:15 01/01/25 07:16 DC 01/01/25 07:28 Patient alert. Blood pressure elevated. Was given hydralazine. Vitals stable. EKG reviewed does not show any acute changes. He is having upper chest wall discomfort. High-risk for coronary artery disease pain Explained to the patient that he will be admitted for further workup. Continue monitoring. Chest XR: [place] [id number] Ph: [phone] DIAGNOSTIC IMAGING Diagnostic Imaging Report : [id number] Signed PATIENT: TEN BAKER ACCT: [id number] UNIT: [id number] : 1950 LOC: ER ROOM / BED: / AGE / SEX: 74 / M ADM STATUS: REG ER SERVICE [id number] ORDERING PHYSICIAN: JAVIER JACK MD PROCEDURE(s): CXRP - CHEST PORTABLE REASON: sob ORDER NUMBER(s): [id number], ACCESSION NUMBER(s): [id number] INDICATION: sob TECHNIQUE: Frontal view of the chest. COMPARISON: XY CHEST TWO VIEWS ROUTINE on DOS: 11/30/23 FINDINGS: . The heart and mediastinal contours are grossly unremarkable. There is no evidence of pleural disease. The lungs are clear. The bony structures of the chest are intact without fracture. IMPRESSION: 1. No evidence of acute disease. ATED BY: LYNN GURROLA MD DICTATED DATE/TIME: 01/01/25815 SIGNED BY: LYNN GURROLA MD SIGNED DATE/TIME: 01/01/25815 CC: Images Reviewed?: Images reviewed and evaluated by me Time of 1ST Reevaluation: 07:53 Reevaluation 1ST: Unchanged Patient Education/Counseling: Diagnosis, Treatment Family Education/Counseling: No Family Present SEPSIS Sepsis Screen Physician Orders Electrocardigram (01/01/25 06:53) Chest Portable (01/01/25 06:54) Troponin-I Hs (01/01/25 07:54) Troponin-I Hs (01/01/25 09:54) Vital Signs Date Time Temp Pulse Resp B/P (MAP) Pulse Ox O2 Delivery O2 Flow Rate FiO2 01/01/25 08:26 58 01/01/25 08:05 97.0 61 11 161/90 (113) 92 97.0 01/01/25 07:37 61 20 95 Room Air* 0 21 01/01/25 07:28 195/103 01/01/25 07:25 56 26 195/103 (133) 95 01/01/25 07:13 58 01/01/25 06:51 58 01/01/25 06:51 98.5 56 20 190/102 98 98.5 Laboratory Tests Test 01/01/25 07:12 White Blood Count 10.0 10^3/uL (4.4-10.8) Medications Medications Dose Ordered Sig/Lacy Route Start Time Stop Time Status Last Admin Dose Admin Hydralazine HCl 10 mg ONCE ONCE IV 01/01/25 07:15 01/01/25 07:16 DC 01/01/25 07:28 Departure 1 Departure Time of Disposition: 07:11 Impression: Primary Impression: Hypertensive emergency Additional Impression: Chest pain of unknown etiology Disposition: 09 ADMITTED INPATIENT Admit to: Med Surg Condition: Guarded Critical Care Note Critical Care Time?: Yes (90 min-critical care time only) Critical care comment: Monitor blood pressure Stability Stability form required: No Heart Score Heart Score: Heart Score Response (Comments) Value History Moderate Suspicious 1 EKG Normal 0 Age >65 2 Risk Factors >3 or Hx ASHD 2 Troponin Normal limit 0 Total 5 I personally scribed for JAVIER JACK MD ([email or web address]) on 01/01/25 at 06:56. Electronically submitted by Blaine Cowart ([email or web address]). I personally scribed for JAVIER JACK MD ([email or web address]) on 01/01/25 at 07:13. Electronically submitted by Blaine Cowart ([email or web address]). I personally scribed for JAVIER JACK MD ([email or web address]) on 01/01/25 at 09:06. Electronically submitted by Blaine Cowart ([email or web address]). JAVIER JACK MD Jan 01, 2025 06:56
[2025-01-01] MEDS ORDERED: LABETALOL HCL 20 MG/4 ML VL IV ONE (07:00)
[2025-01-01] MEDS: hydrALAZINE HCL 20 MG/ML VL IV ONE ×2 (07:28→17:27)
[2025-01-01 07:31] LABS: Hematocrit 43.2 % (41.0-53.0); Hemoglobin 15.0 g/dL (13.5-17.5); Mean Corpuscular Hemoglobin 31.2 pg (28.0-32.0); Mean Corpuscular Volume 89.7 fL (80.0-100.0); Nucleated Red Blood Cells % 0.0 %
[2025-01-01 07:37] VITALS: PULSE 61; RESP 20; O2SAT 95
[2025-01-01 07:39] LABS: Chloride 106 mmol/L (98-107); Potassium 3.9 mmol/L (3.5-5.1); Sodium 139 mmol/L (136-145)
[2025-01-01 07:40] LABS: Anion Gap 10 (5-15); Calcium 10.0 mg/dL (8.7-10.4); Carbon Dioxide 23 mmol/L (20-31)
[2025-01-01 07:45] LABS: BUN/Creatinine Ratio 16.5 (10.0-20.0); Blood Urea Nitrogen 18 mg/dL (9-23)
[2025-01-01 07:48] LABS: Glucose 149 mg/dL (74-106)
--- NOTE | 2025-01-01 08:19 | DVH ---
INDICATION: sob TECHNIQUE: Frontal view of the chest. COMPARISON: XY CHEST TWO VIEWS ROUTINE on DOS: 11/30/23 FINDINGS: . The heart and mediastinal contours are grossly unremarkable. There is no evidence of pleural disea se. The lungs are clear. The bony structures of the chest are intact without fracture. IMPRESSION: 1. No evidence of acute disease.
[2025-01-01 08:51] LABS: Urine Protein, UAD 1+ (Negative)
[2025-01-01] MEDS: ONDANSETRON HCL 4 MG/2 ML VIAL IV ONE (13:38)
[2025-01-01] MEDS: MORPHINE SULFATE INJ 2 MG/ml SYRG IV ONE ×2 (13:39→16:29)
--- NOTE | 2025-01-01 19:37 | DVHHP2 ---
Admitting Diagnosis: Chest pain Shoulder pain History of Present Illness This is a 74 year old male SHAKA presenting to the ED with chief complaint of shoulder pain/HTN. EMS reports that the patient has been experiencing right sided shoulder and neck pain with associated radiation into the right side of his head, SOB, and neck stiffness since yesterday. Patient relays that he has been compliant with his HTN and DM medication. EMS states patient's initial BP was noted to be 225/122, now down to 190/102. Patient denies any chest pain, dizziness, N/V, abdominal pain, fever, or chills. PAST MEDICAL HISTORY: Cancer, DM, HTN Surgical History: Denies all surgeries Family History Family History: Reviewed,noncontributory to illness, Unknown Social History Smoker: Non-Smoker Alcohol: Denies ETOH Use Drugs: Denies Drug Use Lives In: Home Patient Family History: Patient reports no known family medical history. Allergies: Coded Allergies: NO KNOWN ALLERGIES (Unverified , 09/21/17) Home Meds Active Scripts Ibuprofen (Ibuprofen) 600 Mg Tab, 1 TAB PO TID PRN for 5 Days, #15 TAB Prov:JIMMY MONTOYA MD 05/13/24 Acetaminophen (Acetaminophen Er) 650 Mg Tab, 650 MG PO Q6HPRN PRN for 5 Days, #20 TAB Prov:JIMMY MONTOYA MD 05/13/24 Ciprofloxacin Hcl (Cipro) 500 Mg Tab, 1 TAB PO BID, #14 TAB Prov:MONIQUE BARNETT MD 12/02/23 Reported Medications Nifedipine (Nifedipine Er) 90 Mg Tab, 1 11/30/23 Atorvastatin Calcium (ATORVASTATIN CALCIUM) 40 Mg Tab, 1 TAB PO DAILY 11/30/23 Metoprolol Tartrate (Metoprolol Tartrate) 100 Mg Tab, 1 TAB PO BID 11/30/23 Clonidine Hydrochloride (Clonidine Hcl) 0.1 Mg Tab, 1 TAB PO DAILY 11/30/23 Metoprolol Tartrate (Lopressor) 25 Mg Tb, 1 TAB PO DAILY 11/30/23 Valsartan (Valsartan) 80 Mg Tab, 1 TAB PO DAILY 11/30/23 Aspirin (Aspirin Low Dose) 81 Mg Tab, 1 TAB PO DAILY 11/30/23 Continuous Blood Glucose Syste (Freestyle Aysha 2/Sensor/) 1 Kit Kit 11/30/23 Diclofenac Sodium (Topical) (Diclofenac Sodium) 1 % Gel, 2 TOP BID 11/30/23 Current Medications Current Medications Medications (Trade) Dose Ordered Sig/Lacy Route PRN Reason Start Time Stop Time Status Last Admin Hydralazine HCl (Apresoline Injection) 10 mg Q6HP PRN IV SBP>150 01/01/25 18:30 Vital Signs Vital Signs Date Time Temp Pulse Resp B/P (MAP) Pulse Ox O2 Delivery O2 Flow Rate FiO2 01/01/25 18:24 98.2 98.2 01/01/25 17:52 83 29 192/103 (132) 93 01/01/25 07:37 Room Air* 0 21 Physical Exam Generally-74 years old male, well nourished well developed. Mild distress HEENT-atraumatic normocephalic Heart-regular rate and rhythm Lungs clear to auscultate Abdomen soft nontender nondistended Musculoskeletal-no cyanosis Neuro-AO x3, no focal deficit SEPSIS Sepsis Screen Date sepsis recognized/suspect: Jan 01, 2025 Time Sepsis recognized/suspect: 650 Recent Procedure: No On Antibiotic Therapy: No Respiratory Rate >20: No Heart Rate >90: No Temp<36 C (96.8 F) or >38.3 C: No SBP <90 or MAP <65 mmHG: No New Acute Mental Status Change: No Is the patient on CPAP, BIPAP,: No Physician Orders Electrocardigram (01/01/25 06:53) Chest Portable (01/01/25 06:54) Hydralazine Injection (Apresoline Inject (01/01/25 18:30) Echo 2d Mode Cardiac Dop (01/01/25 19:31) Cardiac Diet-2gna,Lofat,Lochol (01/02/25 Breakfast) Clonidine Hcl Tablet (Catapres Tablet) (01/02/25 10:00) Valsartan (Diovan) (01/02/25 10:00) (Nf) Atorvastatin Calcium (01/02/25 10:00) (Nf) Metoprolol Tartrate (01/01/25 22:00) Nifedipine Er (Procardia Xl (Time-Releas (01/01/25 19:45) Aspirin Enteric Coated Tablet (Ecotrin E (01/02/25 10:00) Admit (01/01/25 19:31) Code Status (01/01/25) Vital Signs .PER UNIT PROTOCOL (01/01/25) Review Orders With Adm. (01/01/25) Encourage Activity As Tolerate (01/01/25) Sodium Chloride Lock (Saline Lock Ns) (01/01/25 22:00) Acetaminophen Tablet (Tylenol Tablet) (01/01/25 19:45) Notify Md Of Changes From Base (01/01/25) Advance Directive (01/01/25) Patient Condition (01/01/25) Allergies (01/01/25:) Hydrocodone-Acet 5/325mg Tab ([place] 5/32 (01/01/25 19:45) Hydromorphone Injection (Dilaudid Inject (01/01/25 19:45) Ondansetron Hcl (Zofran) (01/01/25 19:45) Lovenox 40mg (01/02/25 10:00) Nitroglycerin Sublingual (Ntrostat Subli (01/01/25 19:45) Morphine Sulfate Injection (01/01/25 19:45) Stat Ekg For Chest Pain (01/01/25) Notify Md Of Changes From Base (01/01/25) Yacht Hand For 24 Hours (01/01/25) Emergency Dysrhythmia Protocol (01/01/25) Rhythm Strips Once Every Shift (01/01/25:) Oxygen By Nasal Cannula (01/01/25:) Comprehensive Metabolic Panel (01/02/25 05:00) Comprehensive Metabolic Panel (01/03/25 05:00) Comprehensive Metabolic Panel (01/04/25 05:00) Comprehensive Metabolic Panel (01/05/25 05:00) Comprehensive Metabolic Panel (01/06/25 05:00) Complete Blood Count (01/02/25 05:00) Complete Blood Count (01/03/25 05:00) Complete Blood Count (01/04/25 05:00) Complete Blood Count (01/05/25 05:00) Complete Blood Count (01/06/25 05:00) Vital Signs Date Time Temp Pulse Resp B/P (MAP) Pulse Ox O2 Delivery O2 Flow Rate FiO2 01/01/25 18:24 98.2 98.2 01/01/25 17:52 83 29 192/103 (132) 93 01/01/25 17:49 86 18 192/103 01/01/25 17:27 193/101 01/01/25 16:29 71 23 202/104 01/01/25 16:00 66 01/01/25 14:34 61 18 147/102 01/01/25 14:00 62 23 167/95 (119) 92 01/01/25 13:39 60 16 192/100 01/01/25 12:00 69 01/01/25 10:15 67 25 198/98 (131) 96 01/01/25 08:26 58 01/01/25 08:05 97.0 61 11 161/90 (113) 92 97.0 01/01/25 07:37 61 20 95 Room Air* 0 21 01/01/25 07:28 195/103 01/01/25 07:25 56 26 195/103 (133) 95 01/01/25 07:13 58 01/01/25 06:51 58 01/01/25 06:51 98.5 56 20 190/102 98 98.5 Laboratory Tests Test 01/01/25 07:12 White Blood Count 10.0 10^3/uL (4.4-10.8) Medications Medications Dose Ordered Sig/Lacy Route Start Time Stop Time Status Last Admin Dose Admin Hydralazine HCl 10 mg ONCE ONCE IV 01/01/25 17:15 01/01/25 17:16 DC 01/01/25 17:27 Morphine Sulfate 2 mg ONCE ONCE IV 01/01/25 13:45 01/01/25 13:46 DC 01/01/25 13:39 Morphine Sulfate 2 mg ONCE ONCE IV 01/01/25 16:30 01/01/25 16:31 DC 01/01/25 16:29 Ondansetron HCl 4 mg ONCE ONCE IV 01/01/25 13:45 01/01/25 13:46 DC 01/01/25 13:38 Results Labs Test 01/01/25 11:13 01/01/25 08:08 01/01/25 07:12 Range/Units Troponin I High Sensitivity 6 </=54 ng/L Urine Color Light-yellow Yellow Urine Clarity Clear Clear Urine pH 5.5 5.0-9.0 Urine Specific [place] 1.020 1.001-1.035 Urine Protein 1+ H Negative Urine Ketones Negative Negative Urine Blood Negative Negative /uL Urine Nitrite Negative Negative Urine Bilirubin Negative Negative Urine Urobilinogen Normal Negative mg/dL Urine Leukocyte Esterase Negative Negative /uL Urine RBC 1 0 - 3 /hpf Urine Microscopic WBC 1 0-3 /HPF Urine Squamous Epithelial Cells Few <5 /hpf Urine Bacteria Few H None Seen /hpf Urine Glucose 4+ H Normal mg/dL White Blood Count 10.0 4.4-10.8 10^3/uL Red Blood Count 4.81 4.5-5.90 10^6/uL Hemoglobin 15.0 13.5-17.5 g/dL Hematocrit 43.2 41.0-53.0 % Mean Corpuscular Volume 89.7 80.0-100.0 fL Mean Corpuscular Hemoglobin 31.2 28.0-32.0 pg Mean Corpuscular Hemoglobin Concent 34.8 32.0-36.0 g/dL Red Cell Distribution Width 14.5 H 11.8-14.3 % Platelet Count 302 140-450 10^3/uL Mean Platelet Volume 7.1 6.9-10.8 fL Neutrophils (%) (Auto) 72.4 37.0-80.0 % Lymphocytes (%) (Auto) 13.8 10.0-50.0 % Monocytes (%) (Auto) 11.4 0.0-12.0 % Eosinophils (%) (Auto) 1.9 0.0-7.0 % Basophils (%) (Auto) 0.5 0.0-2.0 % Neutrophils # (Auto) 7.2 1.6-8.6 10 ^3/uL Lymphocytes # (Auto) 1.4 0.4-5.4 10 ^3/uL Monocytes # (Auto) 1.1 0-1.3 10 ^3/uL Eosinophils # (Auto) 0.2 0-0.8 10 ^3/uL Basophils # (Auto) 0.1 0-0.2 10 ^3/uL Nucleated Red Blood Cells 0.0 % Sodium Level 139 136-145 mmol/L Potassium Level 3.9 3.5-5.1 mmol/L Chloride Level 106 98-107 mmol/L Carbon Dioxide Level 23 20-31 mmol/L Anion Gap 10 5-15 Blood Urea Nitrogen 18 9-23 mg/dL Creatinine 1.09 0.700-1.30 mg/dL Glomerular Filtration Rate Calc 71 >90 mL/min BUN/Creatinine Ratio 16.5 10.0-20.0 Serum Glucose 149 H 74-106 mg/dL Calcium Level 10.0 8.7-10.4 mg/dL Primary Diagnosis Chest pain rule out ACS Hypertensive emergency Plan Chest pain intermittent Check echo of the heart Patient did not take medication this morning. Resume home meds Troponin negative Hydralazine p.r.n. for hypertension Monitor for chest pain Cardiac diet Full code Lovenox for DVT prophylaxis Plan discussed with: Patient Date of Service: Jan 01, 2025 Billing Provider: JAMES GODWIN MD Common Visit Codes: [id number] INP/OBS CARE (HIGH) JAMES GODWIN MD Jan 01, 2025 19:37
[2025-01-01] MEDS ORDERED: MORPHINE SULFATE INJ 2 MG/ml SYRG IV PRN (19:45)
[2025-01-01] MEDS ORDERED: ACETAMINOPHEN 325 MG TAB PO PRN (19:45)
[2025-01-01] MEDS ORDERED: ONDANSETRON HCL 4 MG/2 ML VIAL IV PRN (19:45)
[2025-01-01] MEDS ORDERED: NITROGLYCERIN 0.4 MG SL TAB SL PRN (19:45)
[2025-01-01] MEDS: hydrALAZINE HCL 20 MG/ML VL IV PRN (19:52)
[2025-01-01 20:13] VITALS: PULSE 108; RESP 20; O2SAT 94
[2025-01-01] MEDS: HYDROcodone-ACET 5/325MG TAB PO PRN (20:32)
[2025-01-01] MEDS: SODIUM CHLOR 0.9% PF (SALINE LOCK) 10ML VIAL/SYR IV SCH (20:41)
[2025-01-01] MEDS: METOPROLOL TARTRATE 50 MG TAB PO SCH (22:06)
[2025-01-02] VITALS (7 sets, daily range): BP systolic 104–145; BP diastolic 64–87; PULSE 58–73; RESP 18–20; TEMP 96.7–99.1; O2SAT 92–95
[2025-01-02 06:13] LABS: Hematocrit 43.4 % (41.0-53.0); Hemoglobin 15.0 g/dL (13.5-17.5); Mean Corpuscular Hemoglobin 31.0 pg (28.0-32.0); Mean Corpuscular Volume 89.6 fL (80.0-100.0); Nucleated Red Blood Cells % 0.1 %
[2025-01-02 06:22] LABS: Alanine Aminotransferase 19 U/L (7-40); Albumin 4.4 g/dL (3.2-4.8); Alkaline Phosphatase 104 U/L (46-116); Anion Gap 11 (5-15); BUN/Creatinine Ratio 16.3 (10.0-20.0); Bilirubin, Total 0.9 mg/dL (0.2-1.0); Blood Urea Nitrogen 21 mg/dL (9-23); Calcium 9.2 mg/dL (8.7-10.4); Carbon Dioxide 23 mmol/L (20-31); Chloride 104 mmol/L (98-107); Potassium 4.1 mmol/L (3.5-5.1); Sodium 138 mmol/L (136-145); Total Protein 6.9 g/dL (5.7-8.2)
[2025-01-02 06:26] LABS: Glucose 166 mg/dL (74-106)
[2025-01-02] MEDS: HYDROmorphone HCL 2 MG/ML VL/or syr IV PRN (06:32)
[2025-01-02] MEDS: ATORVASTATIN 20 MG TAB PO SCH (09:41)
[2025-01-02] MEDS: VALSARTAN 80 MG TAB PO SCH (09:42)
[2025-01-02] MEDS: ASPirin-EC 81 mg tab PO SCH (09:42)
[2025-01-02] MEDS: ENOXAPARIN SOD 40 MG/0.4 ML SYRINGE SC SCH (09:43)
--- NOTE | 2025-01-02 14:27 | DVHSR ---
APPROVED REPORT EXAM: Two-dimensional and M-mode echocardiogram with Doppler and color Doppler. Blood Pressure: 120/70 mmHg INDICATION Chest Pain r/o ACS RISK FACTORS Height: 5' 7", Weight: 190 DIMENSIONS LVDd4.9 (3.8-5.7cm)LA (2D)4.0 (1.9-4.0cm)Aortic Root3.2 (2.0-3.7cm) LVDs3.0 (2.5-4.0cm)LA (MM) (1.9-4.0cm)Aortic Cusp Exc1.2 (1.5-2.0cm) EF (%) 68.0 (55-70%)Rt. Atrium4.4 (1.9-4.0cm)Asc. Aorta cm IVSd1.2 (0.7-1.1cm)RV (D) (1.8-2.4cm) PWd1.1 (0.7-1.1cm) Mitral Valve MitralMitral Stenosis E wave0.80m/sMV Mean GR.mmHg A wave1.00m/sMV Peak GR.mmHg E/A ratio0.82D MVAcm2 Aortic Valve Aortic ValveAortic Stenosis V10.90m/Harpreet Mean GR.7mmHg V21.90m/[place] Peak GR.15mmHg LVOT Diameter2.0 (1.8-2.4cm)Doppler AVA1.49cm2 Pulmonic Valve V20.60m/s Conclusion MILD LVH AND MILD LV DIASTOLIC DYSFUNCTION LV EF IS 68% AND IS NORMAL AORTIC LEAFLETS ARE MODERATELY CALCIFIED AND DECREASED EXCURSION AORTIC VALVE AREA IS 1.49 CM SQUARE IT IS MILD AORTIC STENOSIS NORMAL RV FUNCTION NO EFFUSION
[2025-01-02] MEDS: PANTOPRAZOLE 40 MG TAB PO ONE (14:30)
--- NOTE | 2025-01-02 18:20 | DVHPN2 ---
Subjective c/o pain rt shoulder and neck/no chest pain Changes from previous H/P or p: No Changes Objective Vitals Vital Signs Date Time Temp Pulse Resp B/P (MAP) Pulse Ox O2 Delivery O2 Flow Rate FiO2 01/02/25 13:00 98.3 58 20 124/81 (95) 92 98.3 01/02/25 08:00 Room Air* 0 21 Intake/Output Intake and Output 01/02/25 07:00 Intake Total 120 ml Balance 120 ml Intake Oral 120 ml # Voids 2 General Appearance: Alert, Oriented X3, Cooperative, No acute distress Cardiovascular: Regular rate, Normal S1, Normal S2 Abdomen: Normal bowel sounds, No tenderness Musculoskeletal: Normal sensory function, Normal motor function Neuro: Normal gait, Normal speech, Strength at 5/5 X4 ext, Normal tone, S ensation intact, Cranial nerves 3-12 NL Psych/Mental Status: Mental status NL Medications Current Medications Medications Dose Ordered Sig/Lacy Route Start Time Stop Time Status Last Admin Dose Admin Hydralazine HCl 10 mg Q6HP PRN IV 01/01/25 18:30 01/01/25 19:52 10 MG Clonidine HCl 0.1 mg DAILY PO 01/02/25 10:00 01/02/25 09:42 0.1 MG Valsartan 80 mg DAILY PO 01/02/25 10:00 01/02/25 09:42 80 MG Atorvastatin Calcium 40 mg DAILY PO 01/02/25 10:00 01/02/25 09:41 40 MG Metoprolol Tartrate 100 mg BID PO 01/01/25 22:00 01/01/25 22:18 100 MG Nifedipine 90 mg DAILY PO 01/01/25 19:45 01/02/25 09:41 90 MG Aspirin 81 mg DAILY PO 01/02/25 10:00 01/02/25 09:42 81 MG Sodium Chloride 10 ml Q8HR IV 01/01/25 22:00 01/02/25 13:25 10 ML Acetaminophen 650 mg Q6HP PRN PO 01/01/25 19:45 Enoxaparin Sodium 40 mg DAILY SC 01/02/25 10:00 01/02/25 09:43 40 MG Nitroglycerin 0.4 mg Q5MINP PRN SL 01/01/25 19:45 Acetaminophen/ Hydrocodone Bitart 1 tab Q6HPRN PRN PO 01/02/25 14:30 Pantoprazole Sodium 40 mg DAILY@0600 PO 01/03/25 06:00 Laboratory Results Laboratory Tests 01/02/25 05:14 Chemistry Test 01/02/25 05:14 Albumin 4.4 g/dL (3.2-4.8) Calcium Level 9.2 mg/dL (8.7-10.4) Total Protein 6.9 g/dL (5.7-8.2) LFT Test 01/02/25 05:14 Alanine Aminotransferase (ALT) 19 U/L (7-40) Alkaline Phosphatase 104 U/L (46-116) Aspartate Amino Transferase (AST) 16 U/L (13-40) Total Bilirubin 0.9 mg/dL (0.2-1.0) Urinalysis Test 01/01/25 08:08 Urine Color Light-yellow (Yellow) Urine Clarity Clear (Clear) Urine pH 5.5 (5.0-9.0) Urine Specific [place] 1.020 (1.001-1.035) Urine Protein 1+ (Negative) H Urine Ketones Negative (Negative) Urine Blood Negative /uL (Negative) Urine Nitrite Negative (Negative) Urine Bilirubin Negative (Negative) Urine Urobilinogen Normal mg/dL (Negative) Urine Leukocyte Esterase Negative /uL (Negative) Urine RBC 1 /hpf (0 - 3) Urine Microscopic WBC 1 /HPF (0-3) Urine Squamous Epithelial Cells Few /hpf (<5) Urine Bacteria Few /hpf (None Seen) H Urine Glucose 4+ mg/dL (Normal) H Labs and/or images reviewed: Labs reviewed by me, Image(s) reviewed by me Assessment/Plan Assessment/Plan myofacial pain- treat/evaluate gastritis- dc otc nsaid/add ppi dm prostate cancer accelerated htn better Plan discussed with: Patient, Other My Orders Orders - HERNANDEZ TOMAS MD Procedure Category Date Status Time Hydrocodone-Acet PHA 01/02/25 In Process 5/325mg Tab ([place] 14:30 Pantoprazole Tablet PHA 01/03/25 In Process (Protonix Tablet) 06:00 Date of Service: Jan 02, 2025 Billing Provider: HERNANDEZ TOMAS MD Common Visit Codes: [id number] INP/OBS CARE(MOD) HERNANDEZ TOMAS MD Jan 02, 2025 18:20
--- NOTE | 2025-01-02 20:15 | DVH ---
CLINICAL INDICATION: pain TECHNIQUE: 3 views XY R SHOULDER 2+ VIEW XRAY Comparison: CT CT LEFT HUMERUS WO CONTRAST on DOS: 05/13/24, XY L SHOULDER 2+ VIEW XRAY on DOS: 05/03 06/26 FINDINGS/IMPRESSION: : No acute fracture or dislocation. Mineralization. No significant degenerative change. Small indeter minate mineralization projects posterior to the humeral neck, of low clinical suspicion. Unremarkable imaged chest contents.
[2025-01-02] MEDS: HYDROcodone-ACET 5/325MG TAB PO PRN (21:27)
[2025-01-03] VITALS (7 sets, daily range): BP systolic 104–131; BP diastolic 56–75; PULSE 54–68; RESP 15–20; TEMP 97.5–98.6; O2SAT 91–96
[2025-01-03] MEDS: PANTOPRAZOLE 40 MG TAB PO SCH (06:42)
[2025-01-03 07:20] LABS: Hematocrit 43.2 % (41.0-53.0); Hemoglobin 14.7 g/dL (13.5-17.5); Mean Corpuscular Hemoglobin 30.7 pg (28.0-32.0); Mean Corpuscular Volume 90.3 fL (80.0-100.0); Nucleated Red Blood Cells % 0.1 %
[2025-01-03 07:31] LABS: Alanine Aminotransferase 20 U/L (7-40); Albumin 4.6 g/dL (3.2-4.8); Alkaline Phosphatase 111 U/L (46-116); Anion Gap 10 (5-15); BUN/Creatinine Ratio 23.8 (10.0-20.0); Bilirubin, Total 0.7 mg/dL (0.2-1.0); Calcium 9.2 mg/dL (8.7-10.4); Carbon Dioxide 24 mmol/L (20-31); Chloride 103 mmol/L (98-107); Potassium 4.0 mmol/L (3.5-5.1); Sodium 137 mmol/L (136-145); Total Protein 7.2 g/dL (5.7-8.2)
[2025-01-03 07:34] LABS: Blood Urea Nitrogen 35 mg/dL (9-23); Glucose 191 mg/dL (74-106)
[2025-01-03] MEDS ORDERED: CYCL-837 PO (16:15)
--- NOTE | 2025-01-04 08:46 | ECG ---
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
== END 2025-01-03 17:58 | disposition home or self-care (01) | DRG 556 ==
LOC: EDUNIT# 06:45 → ER 06:45 → EDBD 06:45 → OVERFLOW 19:31 → WEST WING 23:33
PROVIDERS: ADMIT Internal Medicine; ATTEND Internal Medicine
DX: M62.838 Other muscle spasm (principal); I16.1 Hypertensive emergency; K29.70 Gastritis, unspecified, without bleeding; C61 Malignant neoplasm of prostate; E11.9 Type 2 diabetes mellitus without complications; I10 Essential (primary) hypertension; Z79.899 Other long term (current) drug therapy; Z79.82 Long term (current) use of aspirin
CPT/HCPCS: 36415; 71045; 73030; 80048; 80053; 81001; 84484; 85025; 93005; 93306; 96374; 96375; G0378; J2405